=== PATIENT | female | born 1970 | race Caucasian/White ===

== ENCOUNTER 2016-06-18 10:02 | Emergency (ER) | payer OTHER ==
[~2016-06-18] VITALS: Ht 165.1 cm; Wt 68.3 kg
[~2016-06-18 10:02] MED LIST: HYDR12.56 PO; LISI-360 PO; OXYC-360 PO; TOPR25TA2 PO
[2016-06-18 10:03] VITALS: BP 155/106; PULSE 78; RESP 16; TEMP 97.6; O2SAT 100
[2016-06-18] MEDS ORDERED: HYDR12.57 PO (10:16)
[2016-06-18] MEDS ORDERED: METO25TA6 PO (10:16)
[2016-06-18] MEDS ORDERED: LISI10TA3 PO (10:16)
[2016-06-18] MEDS ORDERED: CYCL1TAB29 PO (10:45)
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
== END 2016-06-18 10:59 | disposition home or self-care (01) ==
LOC: PHEFT 10:02
DX: S46.911A Strain of unspecified muscle, fascia and tendon at shoulder and upper arm level, right arm, initial encounter (principal); S29.012A Strain of muscle and tendon of back wall of thorax, initial encounter; S46.912A Strain of unspecified muscle, fascia and tendon at shoulder and upper arm level, left arm, initial encounter; S16.1XXA Strain of muscle, fascia and tendon at neck level, initial encounter; I10 Essential (primary) hypertension; V43.52XA Car driver injured in collision with other type car in traffic accident, initial encounter; Y93.89 Activity, other specified; Y92.410 Unspecified street and highway as the place of occurrence of the external cause
CPT/HCPCS: 99283